=== PATIENT | female | born 2000 | race American Indian/Alaskan Native ===

== ENCOUNTER 2019-10-29 11:32 | Outpatient (CLI) | payer OTHER ==
[2019-10-29] MEDS ORDERED: ASPIR 8181 MG PO (12:24)
[2019-10-29] MEDS ORDERED: PRENATAL CAPLE1 EAC1 PO (12:24)
== END 2019-10-30 11:19 | disposition home or self-care (01) ==
LOC: OBS/DEL 11:32
PROVIDERS: ATTEND Obstetrics & Gynecology
DX: O26.893 Other specified pregnancy related conditions, third trimester (principal); Z04.1 Encounter for examination and observation following transport accident; V49.88XA Car occupant (driver) (passenger) injured in other specified transport accidents, initial encounter; Y93.89 Activity, other specified; Y92.89 Other specified places as the place of occurrence of the external cause; Y99.8 Other external cause status